=== PATIENT | male | born 1985 | race Caucasian/White ===

== ENCOUNTER 2018-07-03 09:45 | Emergency (ER) | payer OTHER ==
[~2018-07-03] VITALS: Ht 170.2 cm; Wt 70.0 kg
[2018-07-03] MEDS ORDERED: SODIUM CHLORIDE FLUSH 10ML SYR IVF ONE (10:00)
[2018-07-03] MEDS ORDERED: LIDOCAINE-MPF 1%, 5ML INFIL ONE (10:00)
[2018-07-03] MEDS ORDERED: SERT50TA PO (10:02)
[2018-07-03 10:07] LABS: BASOPHILS # (AUTO) 0.03 x10^3/uL (0-0.1); BASOPHILS % (AUTO) 1 % (0-1); EOSINOPHILS # (AUTO) 0.17 x10^3/uL (0-0.4); EOSINOPHILS % (AUTO) 4 % (1-7); LYMPHOCYTES % (AUTO) 43 % (22-44); MD NO; MEAN CORPUSCULAR HGB CONC 33.5 g/dL (33.2-36.2); MEAN CORPUSCULAR VOLUME 89.4 fL (81-97); MEAN PLATELET VOLUME 7.5 fL (7.4-10.4); MONOCYTES # (AUTO) 0.81 x10^3/uL (0.2-0.8); MONOCYTES % (AUTO) 19 % (2-9); NEUTROPHILS # (AUTO) 1.42 x10^3/uL (1.8-6.8); NEUTROPHILS % (AUTO) 34 % (42-75); PLATELET COUNT 286 x10^3/uL (130-400); RED BLOOD COUNT 4.77 x10^6/uL (4.38-5.82); RED CELL DISTRIBUTION WIDTH 14.8 % (9.4-14.8)
[2018-07-03 10:19] LABS: ALANINE AMINOTRANSFERASE 313 U/L (12-78); ALBUMIN 3.9 g/dL (3.4-5.0); ANION GAP 7 mmol/L (5-15); CALCIUM 9.6 mg/dL (8.5-10.1); CHLORIDE 106 mmol/L (98-107); CREATININE 1.19 mg/dL (0.7-1.3)
[2018-07-03 10:22] LABS: ALKALINE PHOSPHATASE 86 U/L (45-117); BILIRUBIN,TOTAL 0.3 mg/dL (0.2-1.0); TOTAL PROTEIN 7.6 g/dL (6.4-8.2)
--- NOTE | 2018-07-03 10:31 | NUR ---
REPORT FROM CHER VILLATORO, ASSUME CARE OF PT AT THIS TIME. CCOLLAR PLACED BY EMT. SUTURE SET UP BY EMT. CALL LIGHT WITHIN REACH, GUARD AT BS.
--- NOTE | 2018-07-03 10:35 | NUR ---
EKG PERFORMED. SUTURES SET UP AND PT TO CT AT THIS TIME
[2018-07-03] MEDS ORDERED: LIDOCAINE-MPF 1%, 5ML ONE ×2 (11:12→11:13)
--- NOTE | 2018-07-03 11:15 | NUR ---
CCOLLAR REMOVED PER NATE. LIDOCAINE PROVIDED TO NATE BOND.
[2018-07-03 13:13] VITALS: BP 128/64
== END 2018-07-03 14:01 | disposition home or self-care (01) ==
LOC: ED 10:03
DX: S06.0X1A Concussion with loss of consciousness of 30 minutes or less, initial encounter (principal); S01.312A Laceration without foreign body of left ear, initial encounter; R55 Syncope and collapse; F17.210 Nicotine dependence, cigarettes, uncomplicated; W19.XXXA Unspecified fall, initial encounter; Y93.89 Activity, other specified; Y92.89 Other specified places as the place of occurrence of the external cause; Y99.8 Other external cause status
CPT/HCPCS: 13152; 70450; 72125; 80053; 82962; 85025; 93005; 99284; 99285